=== PATIENT | female | born 1990 | race Caucasian/White ===

== ENCOUNTER 2020-11-28 16:02 | Emergency (ER) | payer MEDICAID ==
--- NOTE | 2020-11-28 16:39 | EDM.PDOC ---
<Juni Azul Stephan - Last Filed: 11/28/20 16:31> ED HPI GENERAL MEDICAL PROBLEM - General Chief Complaint: Allergic Reaction Stated Complaint: Allergic reaction Time Seen by Provider: 11/28/20 16:32 Source of Information: Reports: Patient History Limitations: Reports: No Limitations - History of Present Illness INITIAL COMMENTS - FREE TEXT/NARRATIVE: 30 y/o F brought in by ambulance for possibel allegic reaction. Pt was seen by her PCP in [place] yesterday and diagnosed with a UTI. She was placed on Bactrim and Dicyclomine. Today pt had an episode where it felt like there was pressure on her throat and she was having a hard time breathing. Pt called 911, EMS brought pt to ER. At the present pt expressed some discomfort in her throat but much of it has resolved on its own. Pt also complaining of R side abd pn worse with palpation. Reports decreased appetite over the last several days and burning with urination. Hx of H. Pylori, gastric ulcers. Has had her fallopian tubes removed. Denies fever, cough, chills, drugs, etoh, cp, pelvic pn. Duration: Day(s): Location: Reports: Neck Quality: Reports: Pressure Improves with: Reports: None Worsens with: Reports: None Associated Symptoms: Reports: Loss of Appetite, Shortness of Breath, Other (burning with urination, abd pn) - Related Data Allergies Allergy/AdvReac Type Severity Reaction Status Date / Time azithromycin [From Zithromax] Allergy Nausea and Verified 06/02/20 11:20 Vomiting citalopram hydrobromide Allergy Shortness Verified 06/02/20 11:20 [From Celexa] of Breath lidocaine Allergy Respiratory Verified 06/02/20 11:20 Depression shellfish derived Allergy Facial Verified 06/02/20 11:20 Swelling shrimp Allergy Hives Uncoded 06/02/20 11:20 Home Meds: Home Meds Acetaminophen [Tylenol] 650 mg PO Q8H PRN 07/19/17 [History] Omeprazole 20 mg PO DAILY 05/09/20 [History] Sucralfate [Carafate] 1 tab PO TID 05/09/20 [History] Amoxicillin 875 mg PO BID #20 tab 06/02/20 [Rx] Past Medical History - Past Health History Medical/Surgical History: Denies Medical/Surgical History HEENT History: Reports: Otitis Media Cardiovascular History: Reports: Arrhythmia Other Cardiovascular History: states "I was told I have an irregular heart rate." Is not on any medications for it. Respiratory History: Reports: Sleep Apnea Gastrointestinal History: Reports: GERD, Helicobacter Pylori, PUD Other Gastrointestinal History: H pylori Genitourinary History: Reports: Pyelonephritis ACCOUNT MAINTENANCE REPRESENTATIVE History: Reports: Polycystic Ovaries, , Other (See Below) Other ACCOUNT MAINTENANCE REPRESENTATIVE History: cyst on right ovary Musculoskeletal History: Reports: Back Pain, Chronic, Fracture Neurological History: Reports: Concussion, Headaches, Chronic, Migraines Psychiatric History: Reports: Anxiety, Depression, Panic Attack Endocrine/Metabolic History: Reports: Obesity/BMI 30+ - Infectious Disease History Infectious Disease History: Reports: Other (See Below) Other Infectious Disease History: "staph infection" - Past Surgical History HEENT Surgical History: Reports: None Other HEENT Surgeries/Procedures: wisdom teeth removed Cardiovascular Surgical History: Reports: None Respiratory Surgical History: Reports: None GI Surgical History: Reports: Cholecystectomy, EGD Female Surgical History: Reports: Tubal Ligation Endocrine Surgical History: Reports: None Neurological Surgical History: Reports: None Musculoskeletal Surgical History: Reports: None Social & Family History - Family History Family Medical History: No Pertinent Family History Cardiac: Reports: Hypertension - Caffeine Use Caffeine Use: Reports: Soda - Living Situation & Occupation Living situation: Reports: with Family ED ROS ALLERGIC REACTION - Review of Systems Review Of Systems: Comprehensive ROS is negative, except as noted in HPI. ED EXAM GENERAL NO PERIP PULSE - Physical Exam Exam: See Below Exam Limited By: No Limitations General Appearance: Alert Throat/Mouth: Normal Inspection, Normal Lips, Normal Teeth, Normal Oropharynx, Normal Voice, No Airway Compromise Head: Atraumatic, Normocephalic Neck: Normal Inspection, Supple, Non-Tender, Full Range of Motion, Other (no stridor) Respiratory/Chest: No Respiratory Distress, Lungs Clear, Normal Breath Sounds, No Accessory Muscle Use, Chest Non-Tender Cardiovascular: Normal Peripheral Pulses, Regular Rate, Rhythm, No JVD GI/Abdominal: Soft, Tender (tender R upper quad) (Female) Exam: Deferred Rectal (Female) Exam: Deferred Back Exam: CVA Tenderness (R) Extremities: Normal Inspection Neurological: Alert Psychiatric: Normal Affect, Normal Mood Skin Exam: Warm, Dry, Intact Departure - Departure Disposition: Home, Self-Care 01 Clinical Impression: Medication side effect, Dehydration Abdominal pain Qualifiers: Abdominal location: generalized Qualified Code(s): R10.84 - Generalized abdominal pain - Discharge Information Instructions: Dehydration, Adult, [id number], Abdominal Pain, Adult, [id number] Forms: ED Department Discharge Care Plan Goals: The patient was advised of the examination and lab results during the visit. The patient was encouraged to stop taking the Dicyclomine. The patient should increase her oral fluid intake. If the patient continues to have symptoms, the patient should follow-up with her primary care facility or return to the ED. <Ap Ochoa - Last Filed: 11/28/20 17:29> Course - Vital Signs Last Recorded V/S: Last Vital Signs Temp 98.1 F 11/28/20 16:38 Pulse 89 11/28/20 16:38 Resp 16 11/28/20 16:38 BP 133/52 L 11/28/20 16:38 Pulse Ox 99 11/28/20 16:38 - Orders/Labs/Meds Labs: Laboratory Tests 11/28/20 11/28/20 Range/Units 16:46 16:46 WBC 8.6 (5.0-10.0) 10^3/uL RBC 5.37 (4.2-5.4) 10^6/uL Hgb 14.9 (12.0-16.0) g/dL Hct 43.9 (37.0-47.0) % MCV 81.8 (80-100) fL MCH 27.7 (27.0-34.0) pg MCHC 33.9 (33.0-35.0) g/dL Plt Count 226 (150-450) 10^3/uL Neut % (Auto) 69.4 (42.2-75.2) % Lymph % (Auto) 19.4 L (20.5-50.1) % [place] % (Auto) 9.4 H (2-8) % Eos % (Auto) 1.5 (1.0-3.0) % Baso % (Auto) 0.3 (0.0-1.0) % Sodium 140 (136-145) mmol/L Potassium 3.9 (3.5-5.1) mmol/L Chloride 104 (98-107) mmol/L Carbon Dioxide 27 (21-32) mmol/L Anion Gap 12.9 (7-13) mEq/L BUN 8 (7-18) mg/dL Creatinine 0.80 (0.55-1.02) mg/dL Est Cr Clr Drug Dosing 92.53 mL/min Estimated GFR (MDRD) > 60 BUN/Creatinine Ratio 10.0 (No establ ref range) Glucose 110 H (70-99) mg/dL Calcium 8.2 L (8.5-10.1) mg/dL Total Bilirubin 0.4 (0.2-1.0) mg/dL AST 13 L (15-37) U/L ALT 34 (14-59) U/L Alkaline Phosphatase 46 (46-116) U/L Total Protein 6.2 L (6.4-8.2) g/dL Albumin 3.2 L (3.4-5.0) g/dL Globulin 3.0 Albumin/Globulin Ratio 1.07 Amylase 41 (25-115) U/L Lipase 117 (73-393) U/L - Re-Assessments/Exams Free Text/Narrative Re-Assessment/Exam: 11/28/20 17:27 The patient was examined and labs were reviewed during the visit. Discussed results with the patient. Agree with assessment and plan of care. Departure - Departure Time of Disposition: 17:24 Condition: Fair - Discharge Information *PRESCRIPTION DRUG MONITORING PROGRAM REVIEWED*: Not Applicable *COPY OF PRESCRIPTION DRUG MONITORING REPORT IN PATIENT LADARIUS: Not Applicable Sepsis Event Note (ED) - Focused Exam Vital Signs: Vital Signs Temp Pulse Resp BP Pulse Ox 11/28/20 16:38 98.1 F 89 16 133/52 L 99
[2020-11-28 16:44] VITALS: BP 133/52; PULSE 89
[2020-11-28 17:21] LABS: ANION GAP 12.9 mEq/L (7-13); CHLORIDE,CL 104 mmol/L (98-107); SODIUM,NA 140 mmol/L (136-145)
== END 2020-11-28 17:35 | disposition home or self-care (01) ==
LOC: DL.ED 16:02
DX: R10.84 Generalized abdominal pain (principal); E86.0 Dehydration; T36.8X5A Adverse effect of other systemic antibiotics, initial encounter; T44.3X5A Adverse effect of other parasympatholytics [anticholinergics and antimuscarinics] and spasmolytics, initial encounter; E66.9 Obesity, unspecified; Z68.42 Body mass index [BMI] 45.0-49.9, adult; Z91.013 Allergy to seafood; Z88.1 Allergy status to other antibiotic agents; Z88.8 Allergy status to other drugs, medicaments and biological substances; Z79.899 Other long term (current) drug therapy
CPT/HCPCS: 36415; 80053; 82150; 83690; 85025; 99283; 99284